=== PATIENT | male | born 1960 | race Caucasian/White ===

== ENCOUNTER 2019-09-27 15:42 | Emergency (ER) | payer BC, SELFPAY ==
--- NOTE | ~2019-09-27 | XR_ITS ---
EXAMINATION: [id number] DATE: 09/27/2019 16:15 INDICATION: Right rib pain. Injury. TECHNIQUE: A frontal view of the chest and 4 views of the right ribs were obtained. COMPARISON: Chest 2 views 05/09/2018, CT abdomen and pelvis 07/14/2018 FINDINGS: There is no pneumonia, pleural effusion, or pneumothorax. The heart size is normal. There a re changes of aortic valve replacement. IMPRESSION: 1. No acute rib fracture. Reviewed, dictated and finalized at location A. IMPRESSION: 1. No acute rib fracture.
--- NOTE | 2019-09-27 15:45 | ED.GENADULT ---
HPI - General Adult General Chief complaint: Trauma Stated complaint: right side rib pain, fall Time Seen by Provider: 09/27/19 15:45 Source: patient Mode of arrival: ambulatory Limitations: no limitations History of Present Illness HPI narrative: 59-year-old male patient presents to [facility] with complaints of right-sided rib pain for the past 5 days. Patient states on Tuesday he was getting out of his hot tub and had his right arm outstretched leaning on the side of the hot tub and patient states he then slipped and his hand slipped away and he landed with his right lateral ribs hitting the hot tub. Patient states he has been taking ibuprofen for his symptoms. Denies any bruising. Patient states this morning when he woke up the pain was worse and states that he did have an episode of some shortness of breath but no overall shortness of breath consistently. No coughing. No fevers. Patient states he has had a broken rib before when to come and get checked today. Related Data Home Medications Medication Instructions Recorded Confirmed aspirin 09/27/19 lisinopril 2.5 mg PO BID 09/27/19 09/27/19 spironolactone 12.5 3XW 09/27/19 Allergies Allergy/AdvReac Type Severity Reaction Status Date / Time No Known Allergies Allergy Verified 02/15/19 09:07 Review of Systems Review of Systems: Narrative: CONSTITUTIONAL: Denies fever, chills, or sweats. EYES: Denies visual changes, redness, or discharge. ENT: Denies rhinorrhea, congestion, sore throat, or otalgia. CARDIOVASCULAR: Denies chest pain, palpitations, or edema. RESPIRATORY: Denies cough or dyspnea. Positive right-sided rib pain GASTROINTESTINAL: Denies abdominal pain, nausea, vomiting, or diarrhea. GENITOURINARY: Denies dysuria or hematuria. SKIN: Denies rash or itching. MUSCULOSKELETAL: Denies back pain, joint pain, or myalgia. NEUROLOGIC: Denies headache, numbness, or weakness. PSYCHIATRIC: Denies anxiety or depression. [facility] Past Medical History Medical History Prostate cancer Skin cancer Surgical History Surgical History History of heart valve replacement 2015 History of prostatectomy 2019 Status post surgical removal of malignant neoplasm of skin 2014 Family History Family History Father Family history of lung cancer Social History Social History Smoking status: Smoker, status unknown Alcohol intake: current Comments At the time of my signature I agree with nursing past medical history, surgical, social, and family history. There is no relevant family history pertinent to the presenting complaint. Exam Narrative: Exam Narrative: GENERAL: Well-appearing, well-nourished, and in no acute distress. HEAD: Normocephalic, atraumatic. EYES: PERRLA and EOMI. ENT: Nares clear, no rhinorrhea or epistaxis. Mucous membranes moist. NECK: Supple. No lymphadenopathy CHEST: Clear to auscultation. No respiratory distress. No bruising or obvious trauma noted to the right side or left side of the ribs. There is some tenderness on palpation around the eighth and ninth rib area on the anterior right side. HEART: Regular rate and rhythm. No murmur heard. Normal peripheral pulses. ABDOMEN: Soft, nontender, nondistended, normal active bowel sounds. EXTREMITIES: Normal range of motion. No edema. SKIN: Warm, dry, no rash. NEURO: No focal deficits. Alert and oriented x3. Course Reevaluation(s) Reevaluation #1: Reevaluated patient after his x-ray had resulted. Discussed with him that there is no acute rib fracture noted on the x-ray at this time. Discussed with him this is most likely a muscular strain or even a mild contusion to the area causing the pain. Discussed with patient he can continue taking Tylenol, ibuprofen and using ice and
[2019-09-27 15:56] VITALS: BP 129/78; PULSE 67; RESP 18; TEMP 37.2; O2SAT 100
== END 2019-09-27 16:30 | disposition home or self-care (01) ==
PROVIDERS: Emergency Provider Nurse Practitioner Family; PCP Internal Medicine
DX: R07.81 Pleurodynia (principal); Z85.46 Personal history of malignant neoplasm of prostate; Z85.828 Personal history of other malignant neoplasm of skin; Z95.2 Presence of prosthetic heart valve; Z90.79 Acquired absence of other genital organ(s)
CPT/HCPCS: 71101; 99213; G0463